=== PATIENT | female | born 1990 | race Caucasian/White ===

== ENCOUNTER 2018-04-16 06:55 | Outpatient (CLI) | payer MEDICAID, SELFPAY ==
[2018-04-16 07:03] VITALS: BMI 32.1
[2018-04-16 08:00] LABS: Hematocrit 35.8 % (37-47); Hemoglobin 12.4 g/dl (12.0-15.0); Mean Corp Hgb Conc 34.6 g/gl (32-36); Mean Corpuscular Hgb 31.4 pg (27.0-32.0); Mean Corpuscular Volume 90.6 fL (81-99); Mean Platelet Vol. 10.1 fl (6.2-12.0); Platelet Count 329 K/mm3 (150-450); RBC Distribution Width CV 13.3 % (11.6-14.6); RBC Distribution Width SD 43.4 fl (35.1-43.9); Red Blood Count 3.95 M/mm3 (4.2-5.4); Scan Indicated on CBC? Y/N NO; White Blood Count 13.1 K/mm3 (4.4-11.0)
--- NOTE | 2018-04-24 08:10 | OB.TRI.NOTE ---
- Problem List (1) Encounter for induction of labor Status: Acute History of Present Illness Date of Service: 04/16/18 Was patient seen by the physician?: Yes Reason For Visit: R/O labor and delivery Date of Service: 04/16/18 Final ARCHANA: 04/18/18 Final ARCHANA Source: LMP Gestational age: 40 Weeks and 6 Days History of Present Illness: Presented today for elective induction of labor postdates at 40w5d by LMP. Upon arrival contractions noted to be every 2-3 minutes and palpate moderate at times. Patient feeling contractions and stated they started early this am. Family at bedside. Allergies No Known Allergies Allergy (Verified 04/16/18 07:53) Physical Exam Cervix Dilation (cm): 0 Station: -2 Effacement (%): 50 NST - FHR Rate Baby A Baseline: 135 Variability:: Moderate Accelerations:: 15 x 15 Decelerations:: None NST Reactive:: Yes FHR Category:: Category I Uterine Activity:: every 2-3 minutes Impression/Plan A: at 40w5d by LMP for elective induction of labor post dates Category 1 FHT P: 1) Previously plan for IOL with moralez bulb and cytotect PO. Patient contractions frequent and palpate mild to moderate with patient feeling contractions. Discussed options with patient at this time. Unable to insert moralez bulb due to closed cervical dilation and due to contractions unable to use cytotec. Offered patient to go home and return for routine visit tomorrow in office and see if contractions progress and patient in possible early labor. Also discussed starting pitocin for induction but do not recommend that option at this time. Patient is agreeable with plan to go home and return for routine PN care and postpone induction of labor as in probable early labor. Reviewed labor instructions and when to call. Reviewed plan with and agrees.
== END 2018-04-16 09:10 | disposition home or self-care (01) ==
LOC: WPOUT 10:00
PROVIDERS: Visit Provider Obstetrics & Gynecology
DX: O48.0 Post-term pregnancy (principal); Z3A.40 40 weeks gestation of pregnancy
CPT/HCPCS: 59025; 59050; 85027; 86850; 86900; 99218; J7120; G0378

== ENCOUNTER 2018-04-19 06:10 | Inpatient (IN) | payer MEDICAID, SELFPAY ==
[2018-04-19] VITALS (12 sets, daily range): BP systolic 100–118; BP diastolic 42–61; PULSE 89–106; RESP 16–18; TEMP 36.2–38.9; O2SAT 95–98; BMI 32.0
[2018-04-19] MEDS: Lactated Ringers 1,000 ML 50 ML IV (06:50)
[2018-04-19 07:16] LABS: ROM Internal Control Test YES-OK TO RESULT pt. (Internal QC); ROM Patient Test Negative (Negative)
[2018-04-19] MEDS: 0.9% Normal Saline 100 ML IV.SOLN. INTRA-UTER (08:05)
[2018-04-19 08:51] LABS: Hematocrit 34.8 % (37-47); Hemoglobin 11.5 g/dl (12.0-15.0); Mean Corpuscular Hgb 30.3 pg (27.0-32.0); Mean Corpuscular Volume 91.6 fL (81-99); Mean Platelet Vol. 10.1 fl (6.2-12.0); Platelet Count 303 K/mm3 (150-450); RBC Distribution Width CV 13.6 % (11.6-14.6); RBC Distribution Width SD 45.2 fl (35.1-43.9); White Blood Count 20.6 K/mm3 (4.4-11.0)
[2018-04-19 08:54] LABS: Scan Indicated on CBC? Y/N NO
[2018-04-19] MEDS: Ondansetron 4 MG/2 ML Vial IV (10:16)
[2018-04-19] MEDS: Nalbuphine 10 MG/ML Ampul IV (10:20)
[2018-04-19] MEDS: fentaNYL-bupivacaine (epidural) 100 ML BAG EPIDURAL (12:30)
--- NOTE | 2018-04-19 14:30 | HP.PCM_ITS ---
History Date of Admission: 04/19/18 Final ARCHANA: 04/11/18 Final ARCHANA Source: US <20 weeks Gestational age: 41 Weeks and 1 Days History of this : 27-year-old Ne Saeed patient presents at 41-1/7 weeks gestation this morning with some irregular contractions and possible leaking of fluid. She thinks that her water may have broken at approximately 5 PM on 04/18/2018. She had a regular contractions all night. I informed her that she did not enter active labor by this morning that she should come to labor and delivery to be evaluated for rupture of membranes. Had good movement. She denies any fevers or chills. She noted has been a clearish yellowish color. Her has been uncomplicated to date except for some mild antepartum anemia that improved significantly with oral iron therapy. Past surgical history wisdom tooth extraction Past medical history none Allergies No Known Allergies Allergy (Verified 04/16/18 07:53) Home Medications: Home Medications Ferrous Sulfate 324 mg PO DAILY 04/16/18 Mag-Ox 250 250 mg PO DAILY 04/16/18 Prenatabs FA 1 tab PO DAILY 04/16/18 Vitamin D 1 tab PO DAILY 04/16/18 Smoking Status: Never smoker Alcohol: None Number of Fetus(es): 1 Heart Tracing: Normal baseline with moderate variability and spontaneous accelerations noted upon admission. Irregular contractions noted. 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 She has had a regular contractions and was here for rule out rupture of membranes. Her ROM plus test was negative, however she has gross leaking of fluid when I examined her this morning. Patient agrees to induction of labor for rupture of membranes and is likely an early prodromal labor. Will use Irwin for cervical ripening along with Cytotec, Pitocin as needed. Patient may have epidural, nitrous oxide or Nubain as needed for pain control. Estimated weight is less than 4500 g and pelvis clinically adequate to expect vaginal delivery. Patient and her partner's questions were answered to their satisfaction and they agree with plan. She may have prolonged rupture of membranes, but at this point she is afebrile and will monitor clinically. Procedure note: At approximately 8:50 AM a Irwin catheter was placed over a stylette into the cervical loss in the usual sterile fashion without difficulty. The balloon was inflated to 30 cc and placement over the internal cervical loss was confirmed. 25 mcg of Cytotec was placed in the posterior cul-de-sac. Patient tolerated the procedure well.
[2018-04-19] MEDS: Amnioinfusion- 0.9% NS 1,000 ML IV.SOLN. INTRA-UTER (14:39)
[2018-04-19] MEDS: Lactated Ringers 1,000 ML 999 ML IV (16:40)
[2018-04-19] MEDS: Sodium Citrate/Citric Acid 30 ML UDC PO (17:30)
[2018-04-19] MEDS: Oxytocin 30 units/NS 500 ml 30 UNITS/500 ML IV.SOLN 167 UNITS IV (17:52)
--- NOTE | 2018-04-19 18:00 | PLAC_PTH ---
PATIENT: FREDI TORO LOC: WP U#:[id number] AGE/SX: 27/F ROOM: WP004 RE04/19/[address]: Dr. Shauna Lamar MD : 1990 BED: 1 DIS: 04/21/2018 SPEC #: [id number] RECD: 04/19/18 21:55 STATUS: SHERIF SHRAVAN #: [id number] KIET: 04/19/18 18:[address]: Shauna Lamar DEPT: SURGICAL PATHOLOGY RECD BY: Gabriel Garcia ENTERED: 04/20/18 11:36 SP TYPE: PLACENTA OTHR DR: No Primary Care Phys Tissues: Placenta, NOS Procedures: Surgery Specimen Level V HEADER OPERATION: Primary caesarean section PRE-OP DIAGNOSIS: Suspected chorioamnionitis, thick meconium, postdates TISSUE SUBMITTED: Placenta MICROSCOPIC DIAGNOSIS Placenta: Placental disc - third trimester placenta (548 gm). - Focal acute vasculitis of subamniotic blood vessels. - Focal areas of infraction x 2 (2 and 3 cm in greatest dimension). Membranes ? moderate to marked acute chorioamnionitis. - Pigment laden macrophages consistent with meconium staining. Umbilical cord - three blood vessels and moderate to marked acute funisitis. SJ:darling 04/24/18 MICROSCOPIC DESCRIPTION Slides are reviewed. GROSS DESCRIPTION SPECIMEN: PLACENTA / CLINICAL INFORMATION: A. Weight: 3.357 gm B. Gestational Age: 36 weeks C. Sex: Male PLACENTAL WEIGHT (POST FIXATION): 548 gm PLACENTAL DIMENSIONS: 18 x 16 x 3 cm PLACENTAL SHAPE: Usual ovoid PLACENTAL WEIGHT FOR GESTATIONAL AGE: Within 10-99th percentile MEMBRANES - Present A. Insertion: Marginal B. Site of rupture from edge: 3 cm from edge of placental disc C. Color of membrane: Gaffney-greenish and mucoidy consistent with meconium staining. D. Abnormalities: None UMBILICAL CORD - Present A. Color: Gaffney-marie B. Insertion: Paracentral C. Length: 32 cm D. Diameter: 1 to 1.5 cm E. Number of vessels: Three F. Abnormalities: None A clamp is also noted in the middle of the umbilical cord. PLACENTAL DISC - Present A. Color of surface: Gaffney-marie B. surface abnormalities: A few submembranous blood clots are noted occupying half the surface of the placenta. C. Maternal cotyledons: Intact with minimal tears D. Attached retro placental clot: No clot E. Cut surface: Dark red and spongy F. Lesions: Sections reveal two gaffney, indurated areas in the peripheral portion of the placenta measuring 2 and 3 cm in greatest dimension. G. Separate clot: Absent SECTIONS SUBMITTED: 1. Membrane roll 2. Cord, maternal end 3. Cord, end 4. Placental disc, and maternal surfaces, lesion 5. Placental disc, and maternal surfaces, lesion 6. Placental disc, and maternal surfaces SJ:darling 04/23/18 TC:2 CPT: 73751
--- NOTE | 2018-04-19 18:31 | OP.PCM_ITS ---
Delivery Classification: JOSE MARIA Final ARCHANA: 04/11/18 Final ARCHANA Source: US <20 weeks Gestational age: 41 Weeks and 1 Days Indications for : - - Persistent category 2 FHTS remote from delivery, acute chorioamnionitis Description of Procedure: I was called over earlier for prolonged deceleration. She also had thick meconium-stained fluid. The patient had gotten her epidural and began having deep variable decelerations and prolonged decelerations she had one that did not resolve with maternal repositioning and intrauterine resuscitation measures. She was taken back to the operating room but when I arrived the heart tones had stabilized. An amnioinfusion was started and she was given some terbutaline because she was having contractions approximately every minute. The contractions spaced out heart tones stabilize she had some intermittent variable decelerations with a normal baseline a moderate variability and she was brought up to her labor room. She remained 5 cm. After the terbutaline wore off the contractions increased in frequency again. Her fever also spiked to 104.5?F. At that time ampicillin and gentamicin were ordered for suspected chorioamnionitis. She was given Tylenol. I returned at approximately 1730 to reevaluate the patient. She was having contractions every minute again. She is having intermittent variable decelerations. She still had a normal baseline with moderate variability for the most part. However, with the chorioamnionitis in the high fever, and the fact that she remained 5 cm and we could not augment her labor due to the frequency of her contractions, the decision was made to proceed with . Discussed with her that she had persistent category 2 heart tracing remote from delivery along with the acute chorioamnionitis. Risks benefits and alternatives to continuing expectant management versus section were reviewed, and the patient and her significant other desire to proceed. The patient was taken to the operating room. She was prepped and draped in the dorsal supine position with a leftward tilt. A Pfannenstiel skin incision was made approximately 2 cm above the symphysis pubis and carried through to underlying layer fascia with the scalpel. The fascia was incised incised in the midline and extended laterally with the Thayer scissors. The fascia was dissected off the rectus muscles with blunt and sharp dissection. The rectus muscles were in the midline and the peritoneum was entered bluntly. The peritoneal incision was stretched and the bladder blade was placed. The uterine incision was made in a low transverse fashion with the scalpel and extended superiorly and inferiorly with blunt dissection. The amniotic membranes were ruptured bluntly via the hysterotomy incision and a large amount of thick meconium-stained fluid returned.. The infant's head was brought to the incision in the flexed position and delivered without difficulty. The remainder of the infant was delivered with gentle traction and fundal pressure in the standard fashion. The mouth and nares were bulb suctioned. The cord was clamped and cut as the was stimulated. Cord clamping was not delayed due to meconium stained fluid and the infant was not immediately vigorous.. The was handed off to the waiting nursing staff and transferred to the warmer where the leveling machine operator and family readiness support assistant were waiting. The placenta was delivered with fundal massage and gentle traction in the standard fashion. The uterus was exteriorized and cleared of all clots and debris. . The uterine incision was closed with #1 Vicryl in a running locked fashion. A second layer of the same suture was used in an imbricating fashion and the incision was examined for hemostasis. It was noted that there was approximately a 7 x 5 cm fibroid adhered to the posterior uterus that appeared to be arising off a stalk but adhered to the uterus on the right and inferior side. Adhesions around it. The tubes and ovaries themselves appeared normal. There is also a small subserosal fibroid on the anterior uterus that was approximately 3x2 cm in size. The uterus was placed back into the peritoneal cavity and hemostasis was assured. Some Helen was placed over the fibroid and adhesion area in the posterior uterus and also over the lower uterine segment. The rectus muscles were examined and any bleeding was Bovie cauterized. The parietal peritoneum and rectus muscles were closed en bloc with a #1 Vicryl suture.. The rectus fascia was examined and the bleeding was Bovie cauterized and the rectus fascia was closed with #1 PDS suture in a running standard fashion. The subcutaneous tissue was examining and any bleeding was Bovie cauterized. The subcutaneous tissue was reapproximated with 3-0 Vicryl suture. The skin was closed in a subcuticular fashion by the INNER TUBE CUTTER with me present in the labor and delivery suite. All sponge, lap, and needle counts were correct. The patient was taken to her room for recovery in a stable condition. Amniotic Membrane Rupture Type: Spontaneous Amniotic Fluid Description: Thick meconium Placenta Disposition: Sent to Pathology Drain: Irwin to straight drain Fluids Replaced: 500cc Cord Entanglement: Around neck x 1, loose Nuchal Cord Compression: Without compression Cord Vessel Description: 3 Vessels Esitmated Blood Loss (ml): 600 Infant Gender: Male (1 minute): 8 (5 minute): 9 Delayed cord clamping: No Pre-op Antibiotic Given: - - ampicillin, gentamycin and clindamycin Complications: None - Admit VTE Documentation VTE Present on Admission: No VTE Mechan Device Prophylaxis: SCD's VTE Pharm Prophylaxis ordered?: Yes
[2018-04-19] MEDS: Lactated Ringers 1,000 ML 100 ML IV (20:41)
--- NOTE | 2018-04-19 22:33 | NURSING ---
EPIDURAL CATH REMOVED, BLUE TIP INTACT
[2018-04-19] MEDS: Ketorolac 30 MG/ML Syringe IV (23:33)
[2018-04-20] VITALS (14 sets, daily range): BP systolic 93–104; BP diastolic 41–58; PULSE 74–115; RESP 16–20; TEMP 35.8–37.9; O2SAT 95–100
[2018-04-20] MEDS: Ketorolac 30 MG/ML Syringe IV ×4 (05:30→23:20)
[2018-04-20] MEDS: Enoxaparin 40 MG/0.4 ML Syringe SC (05:31)
[2018-04-20 06:23] LABS: Hematocrit 29.7 % (37-47); Hemoglobin 10.2 g/dl (12.0-15.0); Mean Corp Hgb Conc 34.3 g/gl (32-36); Mean Corpuscular Hgb 31.4 pg (27.0-32.0); Mean Corpuscular Volume 91.4 fL (81-99); Mean Platelet Vol. 9.9 fl (6.2-12.0); Platelet Count 255 K/mm3 (150-450); RBC Distribution Width CV 13.2 % (11.6-14.6); RBC Distribution Width SD 43.3 fl (35.1-43.9); Red Blood Count 3.25 M/mm3 (4.2-5.4); White Blood Count 20.7 K/mm3 (4.4-11.0)
[2018-04-20 06:24] LABS: Scan Indicated on CBC? Y/N NO
[2018-04-20] MEDS: Lactated Ringers 1,000 ML 100 ML IV (08:35)
[2018-04-20] MEDS: Senna/Docusate Sodium 1 Tablet PO ×2 (10:40→21:30)
[2018-04-20] MEDS: 0.9% Saline Lock 10 ML Syringe IV ×3 (11:51→23:20)
--- NOTE | 2018-04-20 12:59 | PN.OBGYN_ITS ---
Subjective: Patient sitting up in bed at this time. Patient reports no breakthrough pain currently. Denies any other issues at this time. Patient planning on ambulating and getting up to shower soon. Objective: Nipples without cracks or blisters Incisional dressing dry and intact, no exudate or erythema noted. +2/4 reflexes in LE, no edema noted. SCDs in place. Small rubra lochia - Physical Exam General: Alert, Oriented x3, Cooperative HEENT: Atraumatic, Normocephalic Neck: Supple Lungs: Normal air movement Cardiovascular: Regular rate, Regular Rhythm Abdomen: Soft, Non Tender Extremities: No edema, Capillary Refill Less than 3 Seconds Skin: No rashes, No breakdown Musculoskeletal: No Tenderness to Palpation of Joints or Extremities Neurological: Cranial nerves II-XII grossly intact, Deep Tendon Reflexes 2+/4 and Symmetrical Psych/Mental Status: Normal Affect, Appropriate Vital Signs Temp Pulse Resp BP Pulse Ox 99.9 F H 115 H 16 97/55 L 98 04/20/18 12:00 04/20/18 12:00 04/20/18 12:00 04/20/18 12:00 04/20/18 10:54 Oxygen Delivery Method Room Air Weight: 164 lb Body Mass Index (BMI) 32.0 Intake and Output for Last 24 Hours 04/18/18 04/19/18 04/20/18 23:59 23:59 23:59 Intake Total 613 / 613 1477 / 1477 Output Total 1550 / 1550 800 / 800 Balance -937 / -937 677 / 677 Laboratory Tests Past 24 Hrs 04/20/18 05:45 WBC 20.7 H RBC 3.25 L Hgb 10.2 L Hct 29.7 L MCV 91.4 MCH 31.4 MCHC 34.3 RDW 13.2 RDW Differential 43.3 Plt Count 255 MPV 9.9 Medical Necessity - Tobacco Use Smoking Status: Never smoker Assessment/Plan 27 y/o s/p LTCS, POD #1, Suspected Chorioamnionitis P: 1) Continue PP orders at this time - 24 hour course of antibiotics will end this evening 2) 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
[2018-04-20] MEDS: oxyCODONE 5 MG Tablet PO ×2 (17:43→21:30)
[2018-04-21 01:20] VITALS: BP 90/47; PULSE 82; RESP 17; TEMP 36.3
[2018-04-21] MEDS: oxyCODONE 5 MG Tablet PO ×4 (01:32→17:51)
[2018-04-21] MEDS: Enoxaparin 40 MG/0.4 ML Syringe SC (05:35)
[2018-04-21] MEDS: 0.9% Saline Lock 10 ML Syringe IV ×3 (05:35→17:17)
[2018-04-21] MEDS: Ketorolac 30 MG/ML Syringe IV ×3 (05:35→17:16)
[2018-04-21 08:19] VITALS: BP 98/54; PULSE 84; RESP 18; TEMP 36.8; O2SAT 96
--- NOTE | 2018-04-21 10:46 | PN.OBGYN_ITS ---
Subjective: Patient ambulating without difficulty and reports no issues today. Patient is requesting discharge to home. Patient reports no issues with ambulation or urination, reports no break through incisional pain and that vaginal bleeding continues to decrease. Objective: Nipples without cracks or blisters, no erythema or exudate noted Abdomen NT x 4 quadrants, FF midline @ 2FB below umbilicus Incisional dressing dry and intact Scant rubra lochia - Physical Exam General: Alert, Oriented x3, Cooperative HEENT: Atraumatic, Normocephalic Neck: Supple Lungs: Clear to auscultation, Normal air movement Cardiovascular: Regular rate, No murmurs Abdomen: Soft, Non Tender Extremities: No edema, Capillary Refill Less than 3 Seconds, No Calf Tenderness , Peripheral Pulses Normal Skin: No rashes, No breakdown Musculoskeletal: No Tenderness to Palpation of Joints or Extremities Neurological: Cranial nerves II-XII grossly intact, Deep Tendon Reflexes 2+/4 and Symmetrical Psych/Mental Status: Normal Affect, Appropriate Vital Signs Temp Pulse Resp BP Pulse Ox 98.2 F 84 18 98/54 L 96 04/21/18 08:19 04/21/18 08:19 04/21/18 08:19 04/21/18 08:19 04/21/18 08:19 Oxygen Delivery Method Room Air Weight: 164 lb Body Mass Index (BMI) 32.0 Intake and Output for Last 24 Hours 04/19/18 04/20/18 04/21/18 23:59 23:59 23:59 Intake Total 613 / 613 1477 / 1477 Output Total 1550 / 1550 3200 / 3200 600 / 600 Balance -937 / -937 -1723 / -1723 -600 / -600 Medical Necessity - Tobacco Use Smoking Status: Never smoker Assessment/Plan 27 y/o , s/p LTCS for arrest of dilation with signs of chorioamionitis - remote from delivery, Normal Course, POD #2 P: 1) 24 hour course of antibiotics ended 04/20/18 ~1800, discussed that patient may be discharged today after ~1800 when she has been afebrile after 24 hours off of antibiotics 2) Rpt CBC with Diff to be drawn at 1600 today 3) Anticipatory health and PP teaching done 4) RTC at 2 and 6 weeks PP for visits at [facility] office Eva Jaimes APRN-CHRISTAL
--- NOTE | 2018-04-21 10:47 | DCINST_ITS ---
Discharge Diet: No Restrictions Discharge Activity: May Not Drive - for 2 weeks or while taking narcotic pain meds., May Shower, May Take a Tub Bath - in 7 days. May resume sexual activity in: 4-6 weeks Lifting Restrictions: 20 pounds Additional Activity Instructions:: Nothing in the vagina for 4-6 weeks. You may return to work/school in 6 weeks. Call your doctor if your incision/area has: Continuous Slow Oozing, Sudden Increased Bleeding, Increased Pain/ Swelling, Increased Redness, Foul Smelling Discharge Call your doctor if you observe: Fever of 101 or Higher, Inability to urinate, Inability to have a bowel movement, Using more than one pad per hour, Calf discomfort, Uncontrolled pain Suture Line Care: Avoid Pulling/Pushing, Avoid Pinching/Bending Remove Dressing in (days):: 5 Additional Instructions: If you experience any of the following, contact your healthcare provider. * Bleeding that soaks a pad every hour for 2 hours * Fever 100.4 or higher * Unrelieved incision or abdominal pain * Swelling, redness, discharge or bleeding from your incision or episiotomy site * Your incision begins to separate * Problems urinating (including inability to urinate or burning while urinating) . * Visual changes * Severe headache * Flu-like symptoms * Pain or redness in one of both of your breasts * Pain, warmth, tenderness or swelling in your legs, especially the calf area * Frequent nausea and vomiting * Symptoms of depression or anxiety If you experience any of the following, call 911 or go to the nearest Emergency Room. * Chest pain * Problems breathing * Seizure activity * Partial or complete paralysis of a body part, slurred speech, weakness or drooping of the face, or a sudden inability to walk or hold your balance Allergies/Adverse Reactions: Allergies No Known Allergies Allergy (Verified 04/16/18 07:53) Medications to take at Discharge Ferrous Sulfate 324 mg PO DAILY 04/16/18 Mag-Ox 250 250 mg PO DAILY 04/16/18 Prenatabs FA 1 tab PO DAILY 04/16/18 Vitamin D 1 tab PO DAILY 04/16/18 Follow-Up: Call to make an appointment with your doctor for an incision check in 1-2 weeks. You will also need a 6 week post- follow up appointment. Test results from this visit will be discussed in further detail at your follow- up appointment, if applicable. Please Follow Up With: Shauna Lamar MD When: 2 week incision check Please Follow Up With: Shauna Lamar MD When: 6 week Visit Primary Care Physician: Care Physician,No Primary [Primary Care Provider] - Proposed Discharge Date: 04/21/18
[2018-04-21] MEDS: Senna/Docusate Sodium 1 Tablet PO (10:56)
[2018-04-21 13:49] VITALS: BP 97/57; PULSE 89; RESP 18; TEMP 36.7; O2SAT 95
[2018-04-21 15:56] LABS: Absolute Lymphocyte Count 1.85 X10^3/ul (0.83-4.51); Absolute Neutrophil Count 13.3 X10^3/uL (2.0-7.7); Basophil# 0.01 X10^3/uL; Basophil% 0.1 % (0-1); Eosinophil# 0.18 X10^3/uL; Eosinophils% 1.1 % (0-5); Hematocrit 27.8 % (37-47); Hemoglobin 9.3 g/dl (12.0-15.0); Lymphocyte # 1.85 X10^3/ul (4.0); Lymphocyte % 11.1 % (19-41); Mean Corp Hgb Conc 33.5 g/gl (32-36); Mean Corpuscular Hgb 30.8 pg (27.0-32.0); Mean Corpuscular Volume 92.1 fL (81-99); Mean Platelet Vol. 9.1 fl (6.2-12.0); Monocyte# 1.29 X10^3/uL; Monocyte% 7.8 % (0-10); Neutrophil # 13.25 X10^3/uL (2.7-7.7); Neutrophil % 79.7 % (47-70); POSITIVE COUNT NO; POSITIVE DIFFERENTIAL NO; POSITIVE MORPHOLOGY NO; Platelet Count 288 K/mm3 (150-450); RBC Distribution Width CV 13.7 % (11.6-14.6); RBC Distribution Width SD 45.8 fl (35.1-43.9); Red Blood Count 3.02 M/mm3 (4.2-5.4); White Blood Count 16.6 K/mm3 (4.4-11.0)
[2018-04-21 17:30] VITALS: BP 97/57; PULSE 70; RESP 18; TEMP 37.4; O2SAT 95
[2018-04-23 11:01] LABS: Pathology Specimen OB SEE PATHOLOGY REPORT
== END 2018-04-21 18:00 | disposition home or self-care (01) | DRG 370 ==
PROVIDERS: Advanced Practice Midwife; Admitting Provider Obstetrics & Gynecology; Visit Provider Obstetrics & Gynecology
DX: O42.92 Full-term premature rupture of membranes, unspecified as to length of time between rupture and onset of labor (principal); O99.02 Anemia complicating childbirth; O62.0 Primary inadequate contractions; O76 Abnormality in fetal heart rate and rhythm complicating labor and delivery; O48.0 Post-term pregnancy; D64.9 Anemia, unspecified; O34.13 Maternal care for benign tumor of corpus uteri, third trimester; D25.2 Subserosal leiomyoma of uterus; O69.81X0 Labor and delivery complicated by cord around neck, without compression, not applicable or unspecified; O41.1230 Chorioamnionitis, third trimester, not applicable or unspecified; O77.0 Labor and delivery complicated by meconium in amniotic fluid; Z37.0 Single live birth; Z3A.41 41 weeks gestation of pregnancy
CPT/HCPCS: 36415; 59025; 59050; 84112; 85025; 85027; 86850; 86900; 88307; 99218; J7030; J7050; J7120; A4216; G0378; J0290; J2405; J3490

== ENCOUNTER 2018-04-25 09:35 | Outpatient (CLI) | payer MEDICAID, SELFPAY | END 2018-04-25 10:30 | disposition home or self-care (01) | LOC: WPOUT 09:37 → WP 09:38 | PROVIDERS: Visit Provider Obstetrics & Gynecology | DX: Z39.1 Encounter for care and examination of lactating mother (principal) | CPT/HCPCS: 96152 ==

== ENCOUNTER 2018-05-16 16:02 | Emergency (ER) | payer MEDICAID, SELFPAY ==
[2018-05-16 16:03] VITALS: BP 125/77; PULSE 59; RESP 17; TEMP 36.7; O2SAT 98; BMI 27.5
--- NOTE | 2018-05-16 17:34 | CT_ITS ---
STUDY: CT ABDOMEN AND PELVIS WITHOUT CONTRAST REASON FOR EXAM: Female, 27 years old. Recent pelvic abscess drainage. Recent . RADIATION DOSAGE (If Supplied By Facility): CTDIvol = ( 13.36 ) mGy, DLP = ( 684.65 ) mGycm TECHNIQUE: Transaxial images were obtained from the dome of the diaphragm to the symphysis pubis without oral contrast, and without intravenous contrast. Sagittal and coronal images were reconstructed. Individualized dose optimization techniques were used for this CT. COMPARISON: None. FINDINGS: There are dependent changes at both lung bases with small bilateral pleural effusions, right greater than left. The lungs are otherwise clear. The visualized portions of the heart are within normal limits. There is hepatomegaly with diffuse hepatic enlargement. No focal mass. Normal gallbladder and extrahepatic biliary system. Normal spleen. Normal pancreas. Normal bilateral adrenal glands. Normal right kidney. Normal left kidney. The stomach is filled with fluid and debris. There is no evidence of obstruction. There or fluid filled loops of nondistended small bowel with mild wall thickening. A large amount of fluid and air within the rectum. The cecal demonstrates mild wall thickening but no evidence for mass or obstruction. There is non-visualization of the appendix. Normal abdominal aorta. Normal inferior vena cava. Normal retroperitoneum. Normal urinary bladder. The uterus is anteverted and midline. There is fluid within the endometrial canal. There is a fluid collection in the lower uterine wall thought to represent the scar. There is a pigtail catheter in the soft tissues anterior to the uterus there is J stent fluid density mass with enhancing rim measuring 2.3 x 1.7 x 1.6 cm. There is haziness throughout the extraperitoneal soft tissues of the pelvis extending outward to the cecum and posteriorly to the rectosigmoid colon. In the posterior cul-de-sac there are 2 fluid density masses with enhancing rim. These measure 2.8 x 2.5 x 5 cm and 2.5 x 1. X 2.2 cm, respectively. There is minimal free fluid in the posterior cul-de-sac as well. There is a small pocket of free air beneath the right rectus muscle best seen on image 87 of series 2. This measures 4 mm in size. There is no free air. There is evidence of Pfannenstiel incision. The abdominal wall appears otherwise grossly unremarkable. Small focus of air within the rectus muscle adjacent to the drainage catheter. Normal osseous structures. CT/Abdomen/Pelvis W IV Cont ONLY IMPRESSION: 1. Distended uterus with evidence of scar. 2. Diffuse stranding of the mesenteric fat. There are at least 3 fluid density masses with enhancing rims. The first lies adjacent to the drainage catheter in the anterior pelvis. The second 2 are in the posterior cul-de-sac. Abscesses cannot be completely ruled out. 3. Enlarged liver without mass. 4. Bilateral pleural effusions and atelectasis. Electronically Signed: Damir Owens DO at 18:02 EDT Tel [phone], Service support ,
--- NOTE | 2018-05-16 18:18 | ED.VISSUMM ---
- ER Visit Summary Date of Service: 05/16/18 Chief Complaint: Unable to irrigate CT-guided LISA drain History of Present Illness: The patient is a 27 F status post 04/19/[address] 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 Patient had done well. A week ago presented to [place] emergency department with fever and pelvic pain. Diagnosed there with pelvic abscesses post . Was taken to [facility] and had interventional radiology place a suprapubic LISA drain. Patient was hospitalized for several days after that and is currently on oral amoxicillin and vancomycin. She has been doing well. States she has been feeling much better. And she has been afebrile. The last 2 days she has been unable to irrigate the drain as instructed daily. She said initially there was 300 cc out and then it slowed to a few cc a day and then stopped. Otherwise she says she is feeling much better. Physical Examination: Very well-appearing young female. Vital signs are stable afebrile. HEENT exam unremarkable. Neck nontender no lymphadenopathy. Lungs clear to auscultation bilaterally. Heart regular rhythm no murmur. Abdomen is soft and nondistended normal bowel sounds no peritoneal signs. She is a very well-healing incision is dry and clean. Suprapubically she has a LISA drain that is been placed. That site also looks good without cellulitis. There is a very small amount of serosanguineous fluid in the drain itself. Moving all 4 extremities. No edema. Neurologically she is awake and alert. Test Results: CT scan of the abdomen and pelvis performed after I spoke to the interventional radiologist at the [facility]. The reading by our radiologist showed 3 fluid-filled densities consistent with pelvic abscesses. One near the catheter and the other 2 posterior cul-de-sac. Emergency Department Course and Treatment: I spoke to interventional radiology and Dr. Fournier of COST MANAGER, for Dr. Lamar today. Interventional radiology will see her tomorrow at the [facility] to reevaluate the new CAT scan results and determine if they need to open the current drain, place a new one or if you are able to remove it. Patient understands all this and will go there tomorrow. She will continue her current antibiotics. Return if she is feeling worse. Treatment Plan: Follow-up with [facility] tomorrow interventional radiology to have reevaluation of her CT-guided pelvic LISA drain. Disposition: Discharge Impression: Pelvic abscesses status post recent Obstructed CT-guided LISA drain This note was generated with [employer] dictation software. It may contain incorrect words, spelling, and punctuation that were not noted in review of the chart prior to signing ED Disposition - Plan for ED Patient: Chief Complaint: Wound Check Referrals: Care Physician,No Primary [Primary Care Provider] -
--- NOTE | 2018-05-16 18:22 | ED.DCSUM_ITS ---
- ER Visit Summary Date of Service: 05/16/18 Chief Complaint: Unable to irrigate CT-guided LISA drain History of Present Illness: The patient is a 27 F status post [address] 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 Patient had done well. A week ago presented to [place] emergency department with fever and pelvic pain. Diagnosed there with pelvic abscesses post . Was taken to [facility] and had interventional radiology place a suprapubic LISA drain. Patient was hospitalized for several days after that and is currently on oral amoxicillin and vancomycin. She has been doing well. States she has been feeling much better. And she has been afebrile. The last 2 days she has been unable to irrigate the drain as instructed daily. She said initially there was 300 cc out and then it slowed to a few cc a day and then stopped. Otherwise she says she is feeling much better. Physical Examination: Very well-appearing young female. Vital signs are stable afebrile. HEENT exam unremarkable. Neck nontender no lymphadenopathy. Lungs clear to auscultation bilaterally. Heart regular rhythm no murmur. Abdomen is soft and nondistended normal bowel sounds no peritoneal signs. She is a very well-healing incision is dry and clean. Suprapubically she has a LISA drain that is been placed. That site also looks good without cellulitis. There is a very small amount of serosanguineous fluid in the drain itself. Moving all 4 extremities. No edema. Neurologically she is awake and alert. Test Results: CT scan of the abdomen and pelvis performed after I spoke to the interventional radiologist at the [facility]. The reading by our radiologist showed 3 fluid-filled densities consistent with pelvic abscesses. One near the catheter and the other 2 posterior cul-de-sac. Emergency Department Course and Treatment: I spoke to interventional radiology and Dr. Fournier of PHYSICAL THERAPY ASSISTANT INSTRUCTOR, for Dr. Lamar today. Interventional radiology will see her tomorrow at the [facility] to reevaluate the new CAT scan results and determine if they need to open the current drain, place a new one or if you are able to remove it. Patient understands all this and will go there tomorrow. She will continue her current antibiotics. Return if she is feeling worse. Treatment Plan: Follow-up with [facility] tomorrow interventional radiology to have reevaluation of her CT-guided pelvic LISA drain. Disposition: Discharge Impression: Pelvic abscesses status post recent Obstructed CT-guided LISA drain This note was generated with [employer] dictation software. It may contain incorrect words, spelling, and punctuation that were not noted in review of the chart prior to signing ED Disposition - Plan for ED Patient: Chief Complaint: Wound Check Referrals: Care Physician,No Primary [Primary Care Provider] -
--- NOTE | 2018-05-16 18:26 | ED.DEP ---
ED Disposition - Plan for ED Patient: Disposition: Home or Assisted Living Chief Complaint: Wound Check Referrals: Care Physician,No Primary [Primary Care Provider] - Shauna Lamar MD [STAFF PHYSICIAN] - As soon as possible Additional Instructions: Call and follow-up with Dr. Shauna Mack office tomorrow morning. The need to help coordinate you going back to [facility] tomorrow back to the interventional radiology department. Take the CAT scan UA done today with you. The [facility] interventional radiology department will need to look at that and determine what next step they will take. Continue your current antibiotics.
[2018-05-16 18:37] VITALS: BP 132/87; PULSE 87; RESP 14; O2SAT 98
== END 2018-05-16 18:37 | disposition home or self-care (01) ==
PROVIDERS: Emergency Provider Emergency Medicine
DX: O99.89 Other specified diseases and conditions complicating pregnancy, childbirth and the puerperium (principal); N73.9 Female pelvic inflammatory disease, unspecified; Z79.899 Other long term (current) drug therapy
CPT/HCPCS: 74177; 99285; Q9967

== ENCOUNTER 2020-05-13 05:00 | Inpatient (IN) | payer MEDICAID, SELFPAY ==
--- NOTE | 2020-05-06 10:54 | PCM.HP.BLA ---
History and Physical Date of Admission: 05/13/20 HPI: The patient is a 29 year old female presenting for pre-operative visit. She is scheduled for?, for?prevoius c/s on?05/13/2020 if she does not enter spont. labor before this. ??Procedure discussed along with risks, benefits and complications. ?Other alternatives discussed for management. Consent form signed??Yes.? PAST MEDICAL HISTORY PAST MEDICAL HISTORY Diagnosis Date ? Anemia ? ? Fibroids, subserous 04/19/2018 ? posterior fibroid 6x5 cm, stalk off posterior uterus, adhered down posterior wall, anterior 3x2 cm subserosal ? Pelvic abscess in female ? ? ? PAST SURGICAL HISTORY PAST SURGICAL HISTORY Procedure Laterality Date ? DELIVERY ONLY ? 04/19/2018 ? low transverse ? PAST SURGICAL HISTORY OF ? ? ? wisdom teeth ? ? CURRENT MEDICATIONS Current Outpatient Medications Medication Sig Dispense Refill ? ferrous sulfate (IRON, FERROUS SULFATE,) 325 mg (65 mg iron) tablet Take 325 mg by mouth daily with breakfast. ? ? ? Vefbbpev-An-Ltu-Fe-FA ( VITAMIN) tab Take 1 tablet by mouth. ? ? ? No current facility-administered medications for this visit.? ? ALLERGIES:?Patient has no known allergies. ? PERSONAL HISTORY:? SOCIAL HISTORY Social History ? Tobacco Use ? Smoking status: Never Smoker ? Smokeless tobacco: Never Used Substance Use Topics ? Alcohol use: No ? Drug use: No ? FAMILY HISTORY:? FAMILY HISTORY FAMILY HISTORY Problem Relation Age of Onset ? No Known Problems Mother ? ? Heart Father ? ? No Known Problems Sister ? ? No Known Problems Brother ? ? Osteoporosis Maternal Grandmother ? ? Alcohol/Drug Maternal Grandfather ? ? other (Liver failure) Maternal Grandfather ? ? Heart Paternal Grandmother ? ? Diabetes Paternal Grandfather ? ? Heart Paternal Grandfather ? ? No Known Problems Son ? ? REVIEW OF SYMPTOMS: ? ? PHYSICAL EXAMINATION: ? VITALS:?Weight 168 lb (76.2 kg), last menstrual period 08/08/2019. ? GENERAL:??The patient is well nourished, well hydrated in no acute distress. ?, The patient is oriented to time, place, and person. NECK:?Supple. No lynphadenopathy, normal thyroid, no thyromegaly. LUNGS:?Clear to auscultation bilaterally. no wheezes, rhonchi or rales HEART:?Regular rate and rhythm, Normal heart sounds and No murmurs or gallops GENITALIA:?Normal external genitalia, Urethral meatus normal, Bladder nontender, normal vagina and normal vaginal tone, normal cervix, normal uterus, size and consistency, normal adnexa without masses or tenderness and perineum WNL ? IMPRESSION:?Estimated Date of Delivery: 05/14/20? for repeat c/s if not in spont. labor ? PLAN:???The risks/benefits/alternatives and personal involved for the planned?c/s?were reviewed with the patient. Her questions were answered to her satisfaction and she desires to proceed. ?Consent was signed. ?I reviewed with her postop instructions and expectations. ? ? I have reviewed and updated past medical and surgical history, medications and allergies. This H&P was completed in my office on 05/06/2020
[2020-05-13] VITALS (21 sets, daily range): BP systolic 91–116; BP diastolic 38–71; PULSE 64–106; RESP 10–18; TEMP 36.2–37.4; O2SAT 96–100; BMI 32.6
[2020-05-13] MEDS: Lactated Ringers 1,000 ML 999 ML IV (05:20)
[2020-05-13 05:27] LABS: Absolute Lymphocyte Count 2.61 X10^3/uL (0.83-4.51); Absolute Neutrophil Count 7.2 X10^3/uL (2.0-7.7); Basophil# 0.02 X10^3/uL; Basophil% 0.2 % (0-1); Eosinophil# 0.16 X10^3/uL; Eosinophils% 1.5 % (0-5); Hematocrit 33.5 % (37-47); Hemoglobin 11.1 g/dL (12.0-15.0); Lymphocyte # 2.61 X10^3/ul (4.0); Lymphocyte % 24.5 % (19-41); Mean Corp Hgb Conc 33.1 g/dL (32-36); Mean Corpuscular Hgb 30.4 pg (27.0-32.0); Mean Corpuscular Volume 91.8 fL (81-99); Mean Platelet Vol. 10.2 fl (6.2-12.0); Monocyte# 0.57 X10^3/uL; Monocyte% 5.4 % (0-10); NRBC Flagged by Analyzer 0 % (0-5); Neutrophil # 7.17 X10^3/uL (2.7-7.7); Neutrophil % 67.4 % (47-70); Platelet Count 296 K/mm3 (150-450); RBC Distribution Width CV 14.3 % (11.6-14.6); Red Blood Count 3.65 M/mm3 (4.2-5.4); White Blood Count 10.6 K/mm3 (4.4-11.0)
[2020-05-13] MEDS: Acetaminophen 500 MG Tablet 1000 MG PO ×3 (05:28→18:36)
[2020-05-13] MEDS: 0.9% Saline Lock 10 ML Syringe IV ×3 (06:05→19:57)
--- NOTE | 2020-05-13 06:06 | NURSING ---
Initial temperature was 99.4 temporal. Oral recheck to verify was 98.1.
[2020-05-13] MEDS: Lactated Ringers 1,000 ML 150 ML IV (06:39)
[2020-05-13] MEDS: Sodium Citrate/Citric Acid 30 ML UDC PO (07:08)
[2020-05-13] MEDS: Cefazolin 2 GM in 0.9% Normal Saline 100 ML IV (07:29)
[2020-05-13] MEDS: Oxytocin 30 units/NS 500 ml 30 UNITS/500 ML IV.SOLN 167 UNITS IV (08:40)
--- NOTE | 2020-05-13 08:48 | OP.PCM_ITS ---
Delivery Classification: Scheduled Final ARCHANA: 05/14/20 Final ARCHANA Source: US <20 weeks Gestational age: 39 Weeks and 6 Days pharmacy clinical specialist: Keisha bernard Type of Anesthesia:: Spinal Special Medications: duramorph Date of Procedure: 05/13/20 Pre-Operative Diagnosis: 39 weeks, previous c/s Post-Operative Diagnosis: same Indications for : Repeat Elective Description of Procedure: The patient was taken to the operating room. She was prepped and draped in the dorsal supine position with a leftward tilt. A Pfannenstiel skin incision was made approximately 2 cm above the symphysis pubis and carried through to underlying layer fascia with the scalpel. The fascia was incised incised in the midline and extended laterally with the Thayer scissors. The fascia was dissected off the rectus muscles with blunt and sharp dissection. The rectus muscles were in the midline and the peritoneum was entered bluntly. The peritoneal incision was stretched and the bladder blade was placed. The uterine incision was made in a low transverse fashion with the scalpel and extended superiorly and inferiorly with blunt dissection. The amniotic membranes were ruptured bluntly and clear amniotic fluid returned. The infant's head was brought to the incision in the flexed position and delivered without difficulty. The remainder of the was delivered with gentle traction and fundal pressure in the standard fashion. The mouth and nares were bulb suctioned. The cord was clamped and cut as the infant was stimulated. Cord clamping was delayed. The was handed off to the waiting nursing staff. The placenta was delivered with fundal massage and gentle traction in the standard fashion. The uterus was exteriorized and cleared of all clots and debris. The cervix was dilated with a ring forcep. The uterine incision was closed with #1 Vicryl in a running locked fashion. A second layer of the same suture was used in an imbricating fashion. The incision was examined and was found to be hemostatic. The uterus was placed back into the peritoneal cavity and hemostasis was again confirmed. The rectus muscles were examined and any bleeding was Bovie cauterized. The parietal peritoneum and rectus muscles were closed en bloc with an 0 Vicryl running suture. The surgical teams outer gloves were then changed. The rectus fascia was examined and any bleeding was Bovie cauterized and the rectus fascia was closed with 1 Vicryl suture in a running standard fashion. The subcutaneous tissue was examining and any bleeding was Bovie cauterized. The subcutaneous tissue was reapproximated with 3-0 Vicryl suture. The skin was closed in a subcuticular fashion by the CASING WORKER with me present in the labor and delivery suite. I performed the remainder of the procedure with assistance. All sponge, lap, and needle counts were correct. The patient was taken to her room for recovery in a stable condition. Amniotic Membrane Rupture Type: Artificial Amniotic Fluid Description: Clear Placenta Disposition: [facility] Specimen(s) sent to pathology: none Drain: Irwin to straight drain Fluids Replaced: 1000 cc Cord Entanglement: None Cord Vessel Description: 3 Vessels Esitmated Blood Loss (ml): 600 Infant Gender: Male Delayed cord clamping: Yes Antibiotic Given: Ancef 2 grams IV x1 Complications: None - Admit VTE Documentation VTE Present on Admission: No VTE Mechan Device Prophylaxis: SCD's VTE Pharm Prophylaxis ordered?: No Reason prophylaxis not ordered:: Procedure Not Indicated
[2020-05-13] MEDS: Lactated Ringers 1,000 ML 100 ML IV (11:50)
[2020-05-13] MEDS: Senna/Docusate Sodium 1 Tablet PO (11:51)
[2020-05-13] MEDS: Ketorolac 30 MG/ML Syringe IV ×2 (14:24→19:56)
[2020-05-14] MEDS: Acetaminophen 500 MG Tablet 1000 MG PO ×3 (00:07→12:01)
[2020-05-14] MEDS: Ketorolac 30 MG/ML Syringe IV ×2 (02:10→08:15)
[2020-05-14] MEDS: 0.9% Saline Lock 10 ML Syringe IV ×2 (02:11→08:16)
[2020-05-14 04:45] VITALS: BP 88/63; BP 93/40; PULSE 72; RESP 18; TEMP 36.7
[2020-05-14 05:02] LABS: Hematocrit 28.6 % (37-47); Hemoglobin 9.6 g/dL (12.0-15.0); Mean Corp Hgb Conc 33.6 g/dL (32-36); Mean Corpuscular Hgb 31.7 pg (27.0-32.0); Mean Corpuscular Volume 94.4 fL (81-99); Mean Platelet Vol. 10.4 fl (6.2-12.0); Platelet Count 305 K/mm3 (150-450); RBC Distribution Width CV 14.4 % (11.6-14.6); RBC Distribution Width SD 49.1 fl (35.1-43.9); Red Blood Count 3.03 M/mm3 (4.2-5.4); White Blood Count 16.1 K/mm3 (4.4-11.0)
--- NOTE | 2020-05-14 05:18 | NURSING ---
05/14/2020 0400 Pt up to shower and was able to urinate. States she feels much relief from voiding.
[2020-05-14] MEDS: Senna/Docusate Sodium 1 Tablet PO (08:15)
[2020-05-14 08:30] VITALS: BP 87/48; PULSE 77; RESP 16; TEMP 36.6
--- NOTE | 2020-05-14 09:12 | PN.OBGYN_ITS ---
Subjective: Pain well controlled, average lochia. No N/V. Ambulating. Able to urinate. is doing well w/ per her report - Physical Exam Vitals/I&O's: Vital Signs Temp Pulse Resp BP Pulse Ox 98 F 77 16 87/48 L 97 05/14/20 08:30 05/14/20 08:30 05/14/20 08:30 05/14/20 08:30 05/13/20 18:40 Oxygen Delivery Method Room Air Weight: 75.841 kg Body Mass Index (BMI) 32.6 Intake and Output for Last 24 Hours 05/12/20 05/13/20 05/14/20 23:59 23:59 23:59 Intake Total 3793.33 / 3793.33 Output Total 2400 / 2400 800 / 800 Balance 1393.33 / 1393.33 -800 / -800 General: Alert, Cooperative, No apparent distress Abdomen: Soft, Distended - mildly, softly, Tender - mildly, appropriately Extremities: Edema - 1+ Skin: Incision - Bandage w/ small amount of sanguinous drainage now dried. Otherwise intact Laboratory Results 05/14/20 04:52: WBC 16.1 H, RBC 3.03 L, Hgb 9.6 L, Hct 28.6 L, MCV 94.4, MCH 31.7, MCHC 33.6, RDW Std Deviation 49.1 H, RDW Coeff of Mirna 14.4, Plt Count 305, MPV 10.4 Current Medications Acetaminophen (Tylenol) 1,000 mg PO Q6 [facility] Last Admin: 05/14/20 06:31 Dose: 1,000 mg Documented by: Bisacodyl (Dulcolax) 10 mg RECTAL UD PRN PRN Reason: If no BM Hydrocortisone (Hytone) 1 applic TOPICAL TID PRN PRN; Protocol PRN Reason: Discomfort Naloxone HCl 4 mg/ Dextrose 504 mls @ 0 mls/hr IV .Q0M PRN; Protocol PRN Reason: Respiratory depression Methylergonovine Maleate (Methergine) 0.2 mg IM X1 PRN PRN Reason: Uterine Atony Naloxone HCl (Narcan) 0.02 mg IV Q1M PRN PRN Reason: RR <10 and pt unresponsive Naproxen (Naprosyn) 500 mg PO Q8H [facility] Ondansetron HCl (Zofran) 4 mg IV Q4H PRN PRN PRN Reason: Nausea Oxycodone HCl (Oxyir) 5 - 10 mg PO Q4H PRN PRN PRN Reason: Pain Score 4-10/10 Prochlorperazine Edisylate (Compazine Iv) 10 mg IV Q6H PRN PRN PRN Reason: NAUSEA Senna/Docusate Sodium (Senokot-S, Oxana-Colace) 0 tablet PO DAILY [facility] Last Admin: 05/14/20 08:15 Dose: 1 tablet Documented by: Simethicone (Mylicon) 80 mg PO PCHS PRN PRN Reason: Indigestion/stomach pain Sodium Chloride () 5 - 15 ml IV UD PRN PRN Reason: SALINE FLUSH Last Admin: 05/14/20 08:16 Dose: 10 ml Documented by: Medical Necessity - Tobacco Use Smoking Status: Never smoker Assessment/Plan All Active Problems Encounter for induction of labor (Acute) POD#1 s/p repeat c/s doing well working on . If does well throughout the day would be ok to d/c home later today.
[2020-05-14 14:00] VITALS: BP 100/44; PULSE 85; RESP 16; TEMP 36.6
[2020-05-14] MEDS: Naproxen 250 MG Tablet 500 MG PO (14:06)
--- NOTE | 2020-05-14 15:48 | DCINST_ITS ---
May resume sexual activity in: 6-8 weeks Additional Instructions: If you experience any of the following, contact your healthcare provider. * Bleeding that soaks a pad every hour for 2 hours * Fever 100.4 or higher * Unrelieved incision or abdominal pain * Swelling, redness, discharge or bleeding from your incision or episiotomy site * Your incision begins to separate * Problems urinating (including inability to urinate or burning while urinating). * Visual changes * Severe headache * Flu-like symptoms * Pain or redness in one of both of your breasts * Pain, warmth, tenderness or swelling in your legs, especially the calf area * Frequent nausea and vomiting * Symptoms of depression or anxiety If you experience any of the following, call 911 or go to the nearest Emergency Room. * Chest pain * Problems breathing * Seizure activity * Partial or complete paralysis of a body part, slurred speech, weakness or drooping of the face, or a sudden inability to walk or hold your balance Allergies/Adverse Reactions: Allergies No Known Allergies Allergy (Verified 05/16/18 16:03) Medications to take at Discharge Ferrous Sulfate 324 mg PO DAILY 04/16/18 Prenatabs FA 1 tab PO DAILY 04/16/18 Follow-Up: Call to make an appointment with your doctor for an incision check in 1-2 weeks. You will also need a 6 week post- follow up appointment. Test results from this visit will be discussed in further detail at your follow- up appointment, if applicable. Primary Care Physician: Care Physician,No Primary [Primary Care Provider] - Proposed Discharge Date: 05/14/20
--- NOTE | 2020-05-14 15:48 | PCM.DCCSEC ---
May resume sexual activity in: 6-8 weeks Additional Instructions: If you experience any of the following, contact your healthcare provider. Bleeding that soaks a pad every hour for 2 hours Fever 100.4 or higher Unrelieved incision or abdominal pain Swelling, redness, discharge or bleeding from your incision or episiotomy site Your incision begins to separate Problems urinating (including inability to urinate or burning while urinating). Visual changes Severe headache Flu-like symptoms Pain or redness in one of both of your breasts Pain, warmth, tenderness or swelling in your legs, especially the calf area Frequent nausea and vomiting Symptoms of depression or anxiety If you experience any of the following, call 911 or go to the nearest Emergency Room. Chest pain Problems breathing Seizure activity Partial or complete paralysis of a body part, slurred speech, weakness or drooping of the face, or a sudden inability to walk or hold your balance Allergies/Adverse Reactions: Allergies No Known Allergies Allergy (Verified 05/16/18 16:03) Medications to take at Discharge Ferrous Sulfate 324 mg PO DAILY 04/16/18 Prenatabs FA 1 tab PO DAILY 04/16/18 Follow-Up: Call to make an appointment with your doctor for an incision check in 1-2 weeks. You will also need a 6 week post- follow up appointment. Test results from this visit will be discussed in further detail at your follow-up appointment, if applicable. Primary Care Physician: Care Physician,No Primary [Primary Care Provider] - Proposed Discharge Date: 05/14/20
--- NOTE | 2020-05-14 15:50 | PCM.DC.SUM ---
Discharge Date and Diagnosis Date of Admission: 05/13/20 Date of Discharge: 05/14/20 Hospital Course and Treatment Summary of Care Provided: The patient is a 29 year old F for repeat section. Hospital course uncomplicated. Patient requesting discharge home today. - Physical Exam Vitals/I&O's: Vital Signs Temp Pulse Resp BP Pulse Ox 98 F 85 16 100/44 L 97 05/14/20 14:00 05/14/20 14:00 05/14/20 14:00 05/14/20 14:00 05/13/20 18:40 Oxygen Delivery Method Room Air Weight: 167 lb 3.2 oz Body Mass Index (BMI) 32.6 Intake and Output for Last 24 Hours 05/12/20 05/13/20 05/14/20 23:59 23:59 23:59 Intake Total 3793.33 / 3793.33 Output Total 2400 / 2400 1500 / 1500 Balance 1393.33 / 1393.33 -1500 / -1500 General: Alert Lungs: Normal air movement Cardiovascular: Regular rate Abdomen: Passing Flatus Neurological: Cranial nerves II-XII grossly intact Psych/Mental Status: Normal Affect Laboratory Results 05/14/20 04:52: WBC 16.1 H, RBC 3.03 L, Hgb 9.6 L, Hct 28.6 L, MCV 94.4, MCH 31.7, MCHC 33.6, RDW Std Deviation 49.1 H, RDW Coeff of Mirna 14.4, Plt Count 305, MPV 10.4 Current Medications Acetaminophen (Tylenol) 1,000 mg PO Q6 [facility] Last Admin: 05/14/20 12:01 Dose: 1,000 mg Documented by: Bisacodyl (Dulcolax) 10 mg RECTAL UD PRN PRN Reason: If no BM Hydrocortisone (Hytone) 1 applic TOPICAL TID PRN PRN; Protocol PRN Reason: Discomfort Naloxone HCl 4 mg/ Dextrose 504 mls @ 0 mls/hr IV .Q0M PRN; Protocol PRN Reason: Respiratory depression Methylergonovine Maleate (Methergine) 0.2 mg IM X1 PRN PRN Reason: Uterine Atony Naloxone HCl (Narcan) 0.02 mg IV Q1M PRN PRN Reason: RR <10 and pt unresponsive Naproxen (Naprosyn) 500 mg PO Q8H [facility] Last Admin: 05/14/20 14:06 Dose: 500 mg Documented by: Ondansetron HCl (Zofran) 4 mg IV Q4H PRN PRN PRN Reason: Nausea Oxycodone HCl (Oxyir) 5 - 10 mg PO Q4H PRN PRN PRN Reason: Pain Score 4-10/10 Prochlorperazine Edisylate (Compazine Iv) 10 mg IV Q6H PRN PRN PRN Reason: NAUSEA Senna/Docusate Sodium (Senokot-S, Oxana-Colace) 0 tablet PO DAILY [facility] Last Admin: 05/14/20 08:15 Dose: 1 tablet Documented by: Simethicone (Mylicon) 80 mg PO PCHS PRN PRN Reason: Indigestion/stomach pain Sodium Chloride () 5 - 15 ml IV UD PRN PRN Reason: SALINE FLUSH Last Admin: 05/14/20 08:16 Dose: 10 ml Documented by: May resume sexual activity in: 6-8 weeks Home Medications: Medications to take at Discharge Ferrous Sulfate 324 mg PO DAILY 04/16/18 Prenatabs FA 1 tab PO DAILY 04/16/18 Primary Care Physician: Care Physician,No Primary [Primary Care Provider] - Medical Necessity - Tobacco Use Smoking Status: Never smoker Meaningful Use Info Meaningful Use Diagnoses (Choose all that apply): None applicable
== END 2020-05-14 16:45 | disposition home or self-care (01) | DRG 540 ==
PROVIDERS: Admitting Provider Obstetrics & Gynecology; Referring Provider Obstetrics & Gynecology; Visit Provider Obstetrics & Gynecology
PROC: 10D00Z1 Extraction of Products of Conception, Low, Open Approach (ICD-10-PCS; CPT 59514; principal; 2020-05-13 07:15)
DX: O34.211 Maternal care for low transverse scar from previous cesarean delivery (principal); Z3A.00 Weeks of gestation of pregnancy not specified; Z37.0 Single live birth
CPT/HCPCS: 85025; 85027; 86850; 86900; 86901; 87635; 94799; 99218; 99251; J7120; A4216; G0378; G0463; J2405; U0003

== ENCOUNTER 2022-08-25 05:05 | Inpatient (IN) | payer MEDICAID, SELFPAY ==
--- NOTE | 2022-08-22 16:54 | PCM.HP.BLA ---
History and Physical Date of Admission: 08/25/22 HPI: The patient is a 31 year old female presenting for pre-operative visit. She is scheduled for and and bilateral salpingectomy, for previous c/s and sterilization on 08/25/22. Procedure discussed along with risks, benefits and complications. Other alternatives discussed for management. Consent form signed? Yes. ? ? PAST MEDICAL HISTORY PAST MEDICAL HISTORY Diagnosis Date ? Anemia ? ? Fibroids, subserous 04/19/2018 ? posterior fibroid 6x5 cm, stalk off posterior uterus, adhered down posterior wall, anterior 3x2 cm subserosal ? Pelvic abscess in female ? ? ? PAST SURGICAL HISTORY PAST SURGICAL HISTORY Procedure Laterality Date ? DELIVERY ONLY ? 04/19/2018 ? low transverse ? SECTION HX ? 05/13/2020 ? RC/S low transverse ? PAST SURGICAL HISTORY OF ? ? ? wisdom teeth ? ? ? CURRENT MEDICATIONS Current Outpatient Medications Medication Sig Dispense Refill ? sertraline (ZOLOFT) 50 mg tablet Take 1 tablet by mouth once daily. Start with 1/2 tablet once a day for 7 days then increase to full tablet once a day 30 tablet 3 ? busPIRone (BUSPAR) 5 mg tablet Take 1 tablet by mouth three times daily. 90 tablet 1 ? Sgrhyeyi-Wo-Eiw-Fe-FA tab Take 1 tablet by mouth. ? ? ? No current facility-administered medications for this visit. ? ? ALLERGIES: Patient has no known allergies. ? PERSONAL HISTORY: SOCIAL HISTORY Social History ? Tobacco Use ? Smoking status: Never ? Smokeless tobacco: Never Vaping Use ? Vaping Use: Never used Substance Use Topics ? Alcohol use: No ? Drug use: No ? FAMILY HISTORY: FAMILY HISTORY FAMILY HISTORY Problem Relation Age of Onset ? No Known Problems Mother ? ? Heart Father ? ? No Known Problems Sister ? ? No Known Problems Brother ? ? Osteoporosis Maternal Grandmother ? ? Alcohol/Drug Maternal Grandfather ? ? other (Liver failure) Maternal Grandfather ? ? Heart Paternal Grandmother ? ? Diabetes Paternal Grandfather ? ? Heart Paternal Grandfather ? ? No Known Problems Son ? ? No Known Problems Son ? ? ? REVIEW OF SYMPTOMS: GENERAL: denies fevers or chills ENDOCRINOLOGY: has not been on steroids Cardiology : denies palpitations or chest pain Respiratory: denies SOB or cough Hematology: denies history of prolonged bleeding or easy bruising or VTE Allergy: Denies history of personal or family history of allergy to anesthesia ? PHYSICAL EXAMINATION: ? VITALS: Last menstrual period 11/16/2021, currently . ? GENERAL: The patient is well nourished, well hydrated in no acute distress. , The patient is oriented to time, place, and person. NECK: Supple. No lynphadenopathy, normal thyroid, no thyromegaly. LUNGS: Clear to auscultation bilaterally. no wheezes, rhonchi or rales HEART: Regular rate and rhythm, Normal heart sounds, and No murmurs or gallops GENITALIA: Normal external genitalia, Urethral meatus normal, Bladder nontender, normal vagina and normal vaginal tone, normal cervix, normal uterus, size and consistency, normal adnexa without masses or tenderness, and perineum WNL WET PREP: Not indicated ? IMPRESSION: Date of Delivery: 09/01/22 for repeat c/s and sterilization request ? PLAN: The risks/benefits/alternatives and personal involved for the planned repeat c/s and bilateral salpingectomy were reviewed with the patient. Her questions were answered to her satisfaction and she desires to proceed. Consent was signed. I reviewed with her postop instructions and expectations. ? ? I have reviewed and updated past medical and surgical history, medications and allergies Assessment & Plan Assessment/Plan (1) 39 weeks gestation of : (2) Supervision of other high risk pregnancies, third trimester: (3) Previous delivery affecting , antepartum:
[2022-08-25] VITALS (15 sets, daily range): BP systolic 88–107; BP diastolic 41–66; PULSE 62–83; RESP 14–19; TEMP 36.1–36.8; O2SAT 96–978; BMI 32.0
--- NOTE | 2022-08-25 | FALS_PTH ---
PATIENT: FREDI TORO LOC: [facility] U#:[id number] AGE/SX: 31/F ROOM: WP004 RE08/25/[address]: Dr. Shauna Lamar MD : 1990 BED: 1 DIS: 08/26/2022 SPEC #: [id number] RECD: 08/25/22 10:37 STATUS: SHERIF REQ #: [id number] KIET: 08/25/22 00:[address]: Shauna Lamar DEPT: SURGICAL PATHOLOGY RECD BY: Jose Cole ENTERED: 08/25/22 10:37 SP TYPE: FALL TUBES OTHR DR: No Primary Care Phys Tissues: Fallopian tube Procedures: Surgery Specimen Level II HEADER OPERATION: Tubal ligation PRE-OP DIAGNOSIS: Sterilization TISSUE SUBMITTED: Fallopian tubes MICROSCOPIC DIAGNOSIS Bilateral fallopian tubes, salpingectomy: Bilateral fallopian tubes, no pathologic diagnosis. FLASH:darling 08/26/2022 MICROSCOPIC DESCRIPTION Slides are reviewed. GROSS DESCRIPTION Received in fixative is one container labeled with the patient's name and designated bilateral fallopian tubes, suture in right. The specimen consists of bilateral fallopian tubes including fimbrial ends. The left fallopian tube measures 8 cm in length and 0.8 cm in diameter and the right fallopian tube measures 6.5 cm in length and 1 cm in diameter. Sections reveal unremarkable cut surfaces. Sandblasting Supervisor sections are submitted in two cassettes as follows: 1 ? right fallopian, 2 ? left fallopian tube. / FLASH:darling 08/25/2022 TC:4 CPT: 63952 x2
[2022-08-25] MEDS: Lactated Ringers 1,000 ML 999 ML IV (05:20)
[2022-08-25 05:39] LABS: Absolute Lymphocyte Count 2.54 X10^3/uL (0.83-4.51); Absolute Neutrophil Count 7.6 X10^3/uL (2.0-7.7); Basophil# 0.03 X10^3/uL; Basophil% 0.3 % (0-1); Eosinophil# 0.19 X10^3/uL; Eosinophils% 1.7 % (0-5); Hematocrit 32.3 % (37-47); Hemoglobin 10.7 g/dL (12.0-15.0); Lymphocyte # 2.54 X10^3/ul (0.83-4.51); Mean Corp Hgb Conc 33.1 g/dL (32-36); Mean Corpuscular Hgb 30.1 pg (27.0-32.0); Mean Corpuscular Volume 90.7 fL (81-99); Mean Platelet Vol. 9.8 fl (6.2-12.0); Monocyte# 0.58 X10^3/uL; Monocyte% 5.3 % (0-10); NRBC Flagged by Analyzer 0 % (0-5); Neutrophil # 7.55 X10^3/uL (2.7-7.7); Neutrophil % 68.5 % (47-70); Platelet Count 353 K/mm3 (150-450); RBC Distribution Width CV 13.2 % (11.6-14.6); RBC Distribution Width SD 43.5 fl (35.1-43.9); Red Blood Count 3.56 M/mm3 (4.2-5.4)
[2022-08-25] MEDS: Acetaminophen 500 MG Tablet 1000 MG PO ×3 (06:08→18:19)
[2022-08-25] MEDS: Lactated Ringers 1,000 ML 150 ML IV (06:25)
[2022-08-25] MEDS: Sodium Citrate/Citric Acid 30 ML UDC PO (07:19)
[2022-08-25] MEDS: Cefazolin 2 GM in 0.9% Normal Saline 100 ML IV (07:33)
--- NOTE | 2022-08-25 08:18 | EX.PCM.OBRPT ---
Assessment & Plan (1) 39 weeks gestation of : (2) Previous delivery affecting , antepartum: Maternal Data Information Final ARCHANA: 09/01/22 Gestational age: 39 0/7 Details Operative Information Date of Procedure: 08/25/22 Pre-Operative Diagnosis: 39 weeks, previous c/s, sterilization request Post-Operative Diagnosis: same Indications for : Repeat Elective and Desires elective sterilization Classification: Scheduled Procedure Type: low transverse (with bilateral salpingectomy) account technician #1: Samia Iraheta Type of Anesthesia: Spinal Anesthesiologist: Zeeshan Guerrero Special Medications: duramorph Antibiotic Given: Ancef 2 grams IV x1 Drain: Irwin to straight drain Estimated Blood Loss: 700 Fluids Replaced: 850 Procedure Start Time: 07:47 Time of Delivery: 07:56 Findings Description of Procedure: findings: normal uterus, tube and ovaries. Small fibroid anterior fundus and posterior lower uterine segment subserosal The patient was taken to the operating room. She was prepped and draped in the dorsal supine position with a leftward tilt. A Pfannenstiel skin incision was made approximately 2 cm above the symphysis pubis and carried through to underlying layer fascia with the scalpel. The fascia was incised incised in the midline and extended laterally with the Thayer scissors. The fascia was dissected off the rectus muscles with blunt and sharp dissection. The rectus muscles were in the midline and the peritoneum was entered bluntly. The peritoneal incision was stretched and the bladder blade was placed. The uterine incision was made in a low transverse fashion with the scalpel and extended superiorly and inferiorly with blunt dissection. The amniotic membranes were ruptured bluntly and clear amniotic fluid returned. The infant's head was brought to the incision in the flexed position and delivered without difficulty. The remainder of the infant was delivered with gentle traction and fundal pressure in the standard fashion. The mouth and nares were bulb suctioned. The cord was clamped and cut as the infant was stimulated. Cord clamping was delayed. The infant was handed off to the waiting nursing staff. The placenta was delivered with fundal massage and gentle traction in the standard fashion. The uterus was exteriorized and cleared of all clots and debris. The cervix was dilated with a ring forcep. The uterine incision was closed with #1 Vicryl in a running locked fashion. 2 [id number] 0 Vicryl sutures were needed to obtain hemostasis in the midline. The incision was examined and was found to be hemostatic. The left fallopian tube was identified and followed out to the fimbriated end. The LigaSure device was used to clamp, seal and transect the tube from the fundus of the uterus and then the antimesenteric portion of the tube and the tube was removed in its entirety. The pedicles were hemostatic. Same procedure was performed on the contralateral side. The uterus was placed back into the peritoneal cavity and hemostasis was again confirmed. The rectus muscles were examined and any bleeding was Bovie cauterized. The parietal peritoneum and rectus muscles were closed en bloc with an 0 Vicryl running suture. The surgical teams outer gloves were then changed. The rectus fascia was examined and any bleeding was Bovie cauterized and the rectus fascia was closed with 1 Vicryl suture in a running standard fashion. The subcutaneous tissue was examining and any bleeding was Bovie cauterized. The subcutaneous tissue was reapproximated with 3-0 Vicryl suture. The skin was closed in a subcuticular fashion by the DIRECTOR GLOBAL MARKET RESEARCH with me present in the labor and delivery suite. I performed the remainder of the procedure with assistance. All sponge, lap, and needle counts were correct. The patient was taken to her room for recovery in a stable condition. Presentation: Positive for Vertex Amniotic Membrane Rupture Type: Spontaneous Amniotic Fluid Description: Clear Placental Delivery Description: Expressed Placenta Disposition: [facility] Specimen(s) Sent to Pathology: bilateral fallopian tubes Cord Vessel Description: 3 Vessels Cord Entanglement: None Infant A Gender: Female (Funmilayo) (1 minute): 8 (5 minute): 9 Delayed Cord Clamping: Yes Complications Complications: none
[2022-08-25 09:03] LABS: Pathology Specimen OB SEE PATHOLOGY REPORT
[2022-08-25] MEDS: Oxytocin 15 Units/NS 250ml 15 UNITS/250 ML IV.SOLN 83 UNITS IV (09:05)
[2022-08-25] MEDS: Ketorolac 30 MG/ML Syringe IV ×3 (09:19→21:43)
[2022-08-25] MEDS: Lactated Ringers 1,000 ML 100 ML IV (12:17)
[2022-08-25] MEDS: Senna/Docusate Sodium 1 Tablet PO (18:20)
[2022-08-26] MEDS: Acetaminophen 500 MG Tablet 1000 MG PO ×3 (00:13→11:41)
[2022-08-26] MEDS: Ketorolac 30 MG/ML Syringe IV (03:40)
[2022-08-26 03:42] VITALS: BP 95/47; PULSE 71; RESP 15; TEMP 36.7
[2022-08-26 05:52] LABS: Hematocrit 28.4 % (37-47); Hemoglobin 9.5 g/dL (12.0-15.0); Mean Corp Hgb Conc 33.5 g/dL (32-36); Mean Corpuscular Hgb 30.9 pg (27.0-32.0); Mean Corpuscular Volume 92.5 fL (81-99); Mean Platelet Vol. 9.7 fl (6.2-12.0); Platelet Count 298 K/mm3 (150-450); RBC Distribution Width CV 13.6 % (11.6-14.6); RBC Distribution Width SD 45.6 fl (35.1-43.9); Red Blood Count 3.07 M/mm3 (4.2-5.4); White Blood Count 14.2 K/mm3 (4.4-11.0)
--- NOTE | 2022-08-26 07:08 | PCM.DC.SUM ---
Providers Date of Admission: 08/25/22 Primary Care Physician: Darlin Primary Care Phys Reason For Visit: C SECTION DELIVERY Diagnosis Discharge Diagnosis (1) 39 weeks gestation of : Status: Acute Code(s): Z3A.39 - 39 weeks gestation of (2) Previous delivery affecting , antepartum: Status: Acute Code(s): O34.219 - Maternal care for unspecified type scar from previous delivery (3) Care and examination of lactating mother: Status: Acute Code(s): Z39.1 - Encounter for care and examination of lactating mother Medications at Discharge Home Medications Ferrous Sulfate 324 mg PO DAILY 04/16/18 Prenatabs FA 1 tab PO DAILY 04/16/18 oxycodone 5 mg tablet 5 - 10 mg PO Q4H PRN PRN Pain Score 4-10 5 days #10 tabs 08/26/22 Hospital Course Operations section Summary of Care Provided Hospital Course: Patient here for scheduled repeat section. Hospital course was uneventful. Physical Exam Narrative Patient seen at bedside. Feeling good. Pain controlled. Ambulating and voiding without difficulty. Passing flatus. Denies any dizziness, headache, SOB, or CP. Requesting discharge home today. Dressing is dry and intact Const alert and no apparent distress General Appearance: cooperative and comfortable Exam Limitations: no limitations HEENT normocephalic Eyes General Eye: normal appearance of both eyes Neck full ROM General: normal visual inspection Chest Chest: symmetrical chest wall rise Resp normal respiratory effort and normal air movement Effort and Inspection: symmetric chest movement Auscultation: clear to auscultation bilaterally Cardio regular rate and regular rhythm GI normal to inspection, nondistended, normoactive bowel sounds Back/Spine normal ROM Extremity full ROM and no calf tenderness General Extremity: normal exam except as noted Skin no rashes or lesions noted Neuro CN's II-XII intact bilaterally Psych mental status grossly normal Weight / BMI Weight Weight: 163 lb 12.8 oz Body Mass Index (BMI) 32.0 ABG / Lab / Microbiology Data Result Diagrams: 08/26/22 05:40 Laboratory: Laboratory Results - last 24 hr 08/26/22 05:40: WBC 14.2 H, RBC 3.07 L, Hgb 9.5 L, Hct 28.4 L, MCV 92.5, MCH 30.9, MCHC 33.5, RDW Std Deviation 45.6 H, RDW Coeff of Mirna 13.6, Plt Count 298, MPV 9.7 Microbiology: Microbiology 08/25/22 05:20 Nasal Secretion SARS-CoV-2 Antigen (Rapid) - Final Meaningful Use Info Meaningful Use Diagnoses (Choose all that apply): None applicable Discharge Plan Admission Admit Date/Time: 08/25/22 05:05 Primary Reason for Your Visit: Repeat section Attending Provider: Shauna Lamar Primary Care Provider: Care Physician,No Primary Discharge Orders/Prescriptions Prescriptions: New oxycodone 5 mg Tablet 5 - 10 mg PO Q4H PRN PRN (Reason: Pain Score 4-10) 5 Days Qty: 10 0RF Continued Ferrous Sulfate 324 mg PO DAILY Prenatabs FA 1 tab PO DAILY Referrals / Follow Up: Care Physician,No Primary [Primary Care Provider] - Disposition Disposition (needs filled in before D/C Order can be placed): Home, Self Care
[2022-08-26] MEDS: Ibuprofen 600 MG Tablet PO (09:22)
[2022-08-26 09:29] VITALS: BP 109/43; PULSE 74; RESP 16; TEMP 36.9
[2022-08-26] MEDS: oxyCODONE 5 MG Tablet PO (11:41)
[2022-08-26] MEDS: FLU VACC QS2022-23(6MOS UP)/PF 60 MCG/0.5 ML SYRINGE IM (11:42)
[2022-08-26] MEDS: Senna/Docusate Sodium 1 Tablet PO (11:42)
== END 2022-08-26 13:10 | disposition home or self-care (01) | DRG 539 ==
PROVIDERS: Admitting Provider Obstetrics & Gynecology; Visit Provider Obstetrics & Gynecology
PROC: 10D00Z1 Extraction of Products of Conception, Low, Open Approach (ICD-10-PCS; CPT 59514; principal; 2022-08-25 07:15)
DX: O34.219 Maternal care for unspecified type scar from previous cesarean delivery (principal); Z30.2 Encounter for sterilization; Z37.0 Single live birth; Z3A.39 39 weeks gestation of pregnancy
CPT/HCPCS: 59025; 59050; 85025; 85027; 86850; 86900; 86901; 87426; 88302; 99218; J7120; 90686; G0378; J2405